=== PATIENT | male | born 1980 | race Two or more races ===

== ENCOUNTER 2023-04-05 11:13 | Inpatient (IN) | payer SELFPAY ==
[~2023-04-05] VITALS: Ht 180.3 cm; Wt 78.2 kg
[2023-04-05 11:44] LABS: Basophils # (auto) 0.1 10 ^3/uL (0-0.2); Basophils % (auto) 1.1 % (0.0-2.0); Eosinophils # (auto) 0.1 10 ^3/uL (0-0.8); Eosinophils % (auto) 1.4 % (0.0-7.0); Hemoglobin 15.4 g/dL (13.5-17.5); Lymphocytes % (auto) 13.7 % (10.0-50.0); Mean Corpuscular Hemoglobin 29.4 pg (28.0-32.0); Mean Corpuscular Hgb Conc. 34.9 g/dL (32.0-36.0); Mean Corpuscular Volume 84.3 fL (80.0-100.0); Monocytes # (auto) 0.5 10 ^3/uL (0-1.3); Monocytes % (auto) 7.2 % (0.0-12.0); Neutrophils # (auto) 5.8 10 ^3/uL (1.6-8.6); Neutrophils % (auto) 76.6 % (37.0-80.0); Red Blood Cells 5.22 10^6/uL (4.5-5.90); Red Cell Distribution Width 13.4 % (11.8-14.3); White Blood Cell 7.5 10^3/uL (4.4-10.8)
[2023-04-05 11:55] LABS: Alanine Aminotransferase 14 U/L (7-40); Alkaline Phosphatase 85 U/L (46-116); Anion Gap 6 (5-15); Aspartate Aminotransferase 9 U/L (13-40); BUN/Creatinine Ratio 13.3 (10.0-20.0); Bilirubin, Total 0.3 mg/dL (0.2-1.0); Blood Urea Nitrogen 12 mg/dL (9-23); Carbon Dioxide 26 mmol/L (20-30); Chloride 107 mmol/L (98-107); Glucose 115 mg/dL (74-106); Magnesium 1.7 mg/dL (1.6-2.6); Potassium 3.9 mmol/L (3.5-5.1); Sodium 139 mmol/L (136-145)
[2023-04-05 11:56] LABS: INR 0.98 (0.9-1.15); Partial Thromboplastin Time 27.9 SEC (24.5-34.5); Prothrombin Time 10.3 sec (9.3-11.8)
[2023-04-05 12:13] LABS: Blood Alcohol < 3.0 mg/dL (<10)
[2023-04-05 12:28] LABS: Amphetamine Screen, Urine Pos (NEGATIVE); Barbiturate Scree,Urine Neg (NEGATIVE); Benzodiazephine Screen, Urine Neg (NEGATIVE); Cannabinoid Screen, Urine Neg (NEGATIVE); Cocaine Screen, Urine Neg (NEGATIVE); Opiate Scree,Urine Neg (NEGATIVE); Phencyclidine Screen, Urine Neg (NEGATIVE)
[2023-04-05 12:37] LABS: Urine Bacteria NONE SEEN /hpf (None Seen); Urine Blood Negative /uL (Negative); Urine Clarity Clear (Clear); Urine Color Yellow (Yellow); Urine Protein, UAD Negative (Negative); Urine Specific Gravity 1.015 (1.001-1.035); Urine Urobilinogen Normal (Negative); Urine WBC 1 /hpf (0 - 3); Urine pH 6.5 (5.0-8.0)
[2023-04-05] MEDS: ASPirin 325 MG TAB PO ONE (16:00)
[2023-04-05 16:55] LABS: LDL Cholesterol 98 mg/dL (< 100); Triglycerides 188 mg/dL (< 150)
[2023-04-05 16:56] LABS: HDL Cholesterol 59 mg/dL (40-59)
[2023-04-05 16:57] LABS: Cholesterol 178 mg/dL (< 200)
[2023-04-05 20:30] VITALS: PULSE 79
[2023-04-05] MEDS ORDERED: AMLO1TAB22 PO (20:34)
[2023-04-05] MEDS: ACETAMINOPHEN 325 MG TAB PO PRN (21:22)
[2023-04-05] MEDS: hydrALAZINE HCL 20 MG/ML VL IV PRN (21:23)
[2023-04-05 22:00] VITALS: BP 200/116; PULSE 72; RESP 19; TEMP 97.9; O2SAT 100
[2023-04-06] VITALS (8 sets, daily range): BP systolic 156–170; BP diastolic 82–113; PULSE 103–124; RESP 19–21; TEMP 97.7–98.2; O2SAT 96–99
[2023-04-06] MEDS: hydrALAZINE HCL 20 MG/ML VL IV ONE (01:59)
[2023-04-06 07:27] LABS: Basophils # (auto) 0.1 10 ^3/uL (0-0.2); Basophils % (auto) 0.5 % (0.0-2.0); Eosinophils # (auto) 0.1 10 ^3/uL (0-0.8); Eosinophils % (auto) 0.5 % (0.0-7.0); Hematocrit 49.2 % (41.0-53.0); Hemoglobin 16.9 g/dL (13.5-17.5); Lymphocytes # (auto) 1.2 10 ^3/uL (0.4-5.4); Lymphocytes % (auto) 10.5 % (10.0-50.0); Mean Corpuscular Hemoglobin 29.1 pg (28.0-32.0); Mean Corpuscular Hgb Conc. 34.3 g/dL (32.0-36.0); Monocytes # (auto) 0.8 10 ^3/uL (0-1.3); Monocytes % (auto) 6.9 % (0.0-12.0); Neutrophils # (auto) 9.2 10 ^3/uL (1.6-8.6); Neutrophils % (auto) 81.6 % (37.0-80.0); Nucleated Red Blood Cells % 0.1 %; Red Blood Cells 5.79 10^6/uL (4.5-5.90); Red Cell Distribution Width 13.7 % (11.8-14.3); White Blood Cell 11.3 10^3/uL (4.4-10.8)
[2023-04-06 07:30] LABS: Alanine Aminotransferase 17 U/L (7-40); Albumin 4.5 g/dL (3.2-4.8); Alkaline Phosphatase 90 U/L (46-116); Anion Gap 10 (5-15); Aspartate Aminotransferase 17 U/L (13-40); BUN/Creatinine Ratio 7.5 (10.0-20.0); Bilirubin, Total 0.6 mg/dL (0.2-1.0); Blood Urea Nitrogen 7 mg/dL (9-23); Calcium 9.7 mg/dL (8.5-10.1); Carbon Dioxide 24 mmol/L (20-30); Chloride 106 mmol/L (98-107); Glucose 104 mg/dL (74-106); Potassium 3.5 mmol/L (3.5-5.1); Sodium 140 mmol/L (136-145); Total Protein 7.1 g/dL (5.7-8.2)
[2023-04-06] MEDS: ASPirin 81 mg TAB PO SCH (10:23)
[2023-04-06] MEDS: ENOXAPARIN SOD 40 MG/0.4 ML SYRINGE SC SCH (10:24)
[2023-04-06] MEDS: ATORVASTATIN 20 MG TAB PO SCH (21:53)
[2023-04-07] VITALS (7 sets, daily range): BP systolic 146–158; BP diastolic 83–107; PULSE 75–90; RESP 15–20; TEMP 97.7–98.6; O2SAT 97–99
[2023-04-07] MEDS: amLODIPine BESYLATE 5 MG TAB PO SCH (09:13)
[2023-04-07] MEDS: VALSARTAN 80 MG TAB PO SCH (09:13)
[2023-04-08 05:05] VITALS: BP 142/101; PULSE 79; RESP 18; TEMP 97.9; O2SAT 100
[2023-04-08 08:00] VITALS: PULSE 82
[2023-04-08 08:15] VITALS: PULSE 84; RESP 20; O2SAT 99
[2023-04-08 08:50] VITALS: BP 154/103; PULSE 84; RESP 20; TEMP 98.1; O2SAT 99
[2023-04-08] MEDS ORDERED: VALS1TAB57 PO (11:33)
[2023-04-08] MEDS ORDERED: ATOR20TA50 PO (11:33)
[2023-04-08] MEDS ORDERED: ASPI-325 PO (11:33)
[2023-04-08 12:11] VITALS: BP 145/95; PULSE 95; RESP 20; TEMP 98.1; O2SAT 98
[2023-04-08 12:41] VITALS: BP 145/95; PULSE 95; RESP 20; TEMP 98.1; O2SAT 98
== END 2023-04-08 12:40 | disposition home or self-care (01) | DRG 305 ==
LOC: EDBD 11:13 → ER 11:13 → TELE 16:03 → TELE-WESTW 20:15
PROVIDERS: ADMIT Nurse Practitioner Family; ATTEND Internal Medicine
DX: I16.0 Hypertensive urgency (principal); I10 Essential (primary) hypertension; F15.10 Other stimulant abuse, uncomplicated; Z79.82 Long term (current) use of aspirin; Z91.199 Patient's noncompliance with other medical treatment and regimen due to unspecified reason
CPT/HCPCS: 36415; 71045; 80053; 80061; 80307; 80320; 81001; 83605; 83735; 83880; 84443; 84484; 85025; 85379; 85610; 85730; 93306; 96374; G0378